=== PATIENT | male | born 1945 | race Caucasian/White ===

== ENCOUNTER 2017-04-09 06:48 | Day surgery (SDC) | payer MEDICARE ==
[~2017-04-09] VITALS: Ht 172.7 cm; Wt 99.0 kg
[~2017-04-09 06:48] MED LIST: ALPR0.255 PO; ASPI-555 PO; FLUT16H NASAL; LOSA25TA21 PO; METF-527 PO; MONT10TA24 PO; PANT40TA25 PO; SIMV40TA5 PO; SODIUM CHLORIDE 0.9% 1000ML 1,000 ML IV ONE; TIMO.5OS OU; VENL-63 PO; XALA2.5OS OU
[2017-04-09 07:44] VITALS: BP 117/66
[2017-04-09] MEDS ORDERED: PROPOFOL 10 MG/ML 20ML VIAL IV ONE ×2 (08:46→08:47)
[2017-04-09] MEDS ORDERED: PHENYLEPHRINE HCL 10 MG/ML 1ML VIAL IV ONE (08:59)
== END 2017-04-09 09:52 | disposition home or self-care (01) ==
LOC: DAH 06:48
PROVIDERS: ATTEND Internal Medicine Gastroenterology
DX: Z09 Encounter for follow-up examination after completed treatment for conditions other than malignant neoplasm (principal); K57.30 Diverticulosis of large intestine without perforation or abscess without bleeding; K21.9 Gastro-esophageal reflux disease without esophagitis; E78.5 Hyperlipidemia, unspecified; G47.33 Obstructive sleep apnea (adult) (pediatric); M19.90 Unspecified osteoarthritis, unspecified site; E11.39 Type 2 diabetes mellitus with other diabetic ophthalmic complication; H40.9 Unspecified glaucoma; Z86.010 Personal history of colon polyps; Z79.82 Long term (current) use of aspirin; Z88.8 Allergy status to other drugs, medicaments and biological substances; Z12.11 Encounter for screening for malignant neoplasm of colon
CPT/HCPCS: 82948 ×2; A4606; G0105; J2370; J2704 ×2; J7030

== ENCOUNTER → 2018-09-18 | Outpatient (CLI) | payer OTHER ==
[~2018-09-18] MED LIST changes: -LOSA25TA21 PO; +LOSA25TA41 PO; -SODIUM CHLORIDE 0.9% 1000ML 1,000 ML IV ONE
== END | disposition home or self-care (01) ==
LOC: OIH 10:09
PROVIDERS: ATTEND Internal Medicine Nephrology
DX: Z13.6 Encounter for screening for cardiovascular disorders (principal)
CPT/HCPCS: 75571

== ENCOUNTER 2020-06-21 05:59 | Emergency (ER) | payer MEDICARE ==
[~2020-06-21 05:59] MED LIST changes: -ASPI-555 PO; +ASPI-556 PO; +MONT-39 PO; -MONT10TA24 PO; -PANT40TA25 PO; +PANT40TA55 PO; +SIMV-46 PO; -SIMV40TA5 PO
[2020-06-21] MEDS ORDERED: TETRACAINE HCL 0.5% 4 ML OPHTH SOLN ONE (06:25)
[2020-06-21] MEDS ORDERED: FLUORESCEIN SODIUM 1 STRIP STRIP ONE (06:25)
[2020-06-21] MEDS ORDERED: ERYTHROMYCIN BASE 0.5% OPHTH OINT 1 GM TUBE ONE (06:47)
[2020-06-21] MEDS ORDERED: ACETAMINOPHEN WITH CODEINE 1 TAB TAB ONE (06:47)
== END 2020-06-21 06:50 | disposition home or self-care (01) ==
LOC: EDH 05:59
DX: S05.01XA Injury of conjunctiva and corneal abrasion without foreign body, right eye, initial encounter (principal); Z90.49 Acquired absence of other specified parts of digestive tract; I10 Essential (primary) hypertension; E11.9 Type 2 diabetes mellitus without complications; E78.00 Pure hypercholesterolemia, unspecified; X58.XXXA Exposure to other specified factors, initial encounter; Y93.89 Activity, other specified; Y92.89 Other specified places as the place of occurrence of the external cause; Y99.8 Other external cause status